=== PATIENT | male | born 1990 | race Caucasian/White ===

== ENCOUNTER → 2018-07-30 | Outpatient (CLI) | payer OTHER | LOC: RAD 16:26 | DX: M79.89 Other specified soft tissue disorders (principal) ==

== ENCOUNTER 2020-12-07 21:00 | Emergency (ER) | payer OTHER ==
[~2020-12-07] VITALS: Ht 200.7 cm; Wt 96.8 kg
[2020-12-07 22:34] VITALS: BP 118/73
== END 2020-12-07 22:35 | disposition home or self-care (01) ==
LOC: ED 21:00
DX: S06.0X0A Concussion without loss of consciousness, initial encounter (principal); S00.03XA Contusion of scalp, initial encounter; W20.8XXA Other cause of strike by thrown, projected or falling object, initial encounter

== ENCOUNTER 2022-12-11 20:06 | Emergency (ER) | payer OTHER ==
[~2022-12-11] VITALS: Ht 200.7 cm; Wt 104.5 kg
[2022-12-11 20:35] VITALS: BP 125/92
[2022-12-11 21:11] LABS: BASO # 0.05 K/mm3 (0.02-0.10); EOS # 0.18 K/mm3 (0.04-0.40); EOS % 2.3 % (0.0-4.0); HEMATOCRIT 45.4 % (42.0-52.0); HEMOGLOBIN 15.9 g/dL (13.5-18.0); LYMPH# 3.35 K/mm3 (1.50-4.00); MEAN CELL VOLUME 89 fl (78-100); MEAN CORPUSCULAR HEMOGLOBIN 31 pg (27-31); MEAN CORPUSCULAR HGB CONC 35 g/dL (33-37); MEAN PLATELET VOLUME 10.4 fl (7.4-10.4); MONO # 0.66 K/mm3 (0.20-0.80); NEU # 3.61 K/mm3 (1.40-6.50); PLATELET COUNT 203 K/mm3 (130-400); RED BLOOD COUNT 5.08 M/mm3 (4.20-5.60); RED CELL DISTRIBUTION WIDTH 12.4 % (11.5-14.5); WHITE BLOOD COUNT 7.9 K/mm3 (4.8-10.8)
[2022-12-11 21:17] LABS: ALBUMIN 5.1 g/dL (3.5-5.0)
[2022-12-11 21:19] LABS: CALCIUM 10.1 mg/dL (8.3-10.5)
[2022-12-11 21:20] LABS: TOTAL PROTEIN 8.2 g/dL (6.4-8.3)
[2022-12-11 21:22] LABS: TOTAL BILIRUBIN 0.8 mg/dL (0.2-1.2)
== END 2022-12-11 21:30 | disposition home or self-care (01) ==
LOC: ED 20:06
PROVIDERS: Family Medicine
DX: R10.9 Unspecified abdominal pain (principal); V49.9XXA Car occupant (driver) (passenger) injured in unspecified traffic accident, initial encounter; Y92.410 Unspecified street and highway as the place of occurrence of the external cause

== ENCOUNTER → 2023-09-18 | Outpatient (CLI) | payer OTHER ==
[2023-09-18 15:58] LABS: HEMATOCRIT 46.7 % (42.0-52.0); MEAN CELL VOLUME 89 fl (78-100); MEAN CORPUSCULAR HEMOGLOBIN 31 pg (27-31); MEAN CORPUSCULAR HGB CONC 34 g/dL (33-37); MEAN PLATELET VOLUME 9.6 fl (7.4-10.4); PLATELET COUNT 249 K/mm3 (130-400); RED BLOOD COUNT 5.24 M/mm3 (4.20-5.60); RED CELL DISTRIBUTION WIDTH 12.3 % (11.5-14.5); WHITE BLOOD COUNT 9.4 K/mm3 (4.8-10.8)
[2023-09-18 16:06] LABS: ALBUMIN 4.4 g/dL (3.5-5.0)
[2023-09-18 16:07] LABS: CALCIUM 9.6 mg/dL (8.3-10.5)
[2023-09-18 16:08] LABS: TOTAL PROTEIN 7.5 g/dL (6.4-8.3)
[2023-09-18 16:10] LABS: TOTAL BILIRUBIN 0.6 mg/dL (0.2-1.2)
[2023-09-18 16:47] LABS: BAND 1 % (0-10); LYMPHOCYTE 17 % (20-51); MONOCYTE 15 % (3-10); NEUTROPHILS 58 % (42-75)
== END ==
LOC: LAB 15:41
PROVIDERS: Family Medicine
DX: R06.00 Dyspnea, unspecified (principal)

== ENCOUNTER → 2023-10-02 | Outpatient (REF) | payer OTHER ==
[2023-10-02 14:55] LABS: BASO # 0.03 K/mm3 (0.02-0.10); EOS # 0.33 K/mm3 (0.04-0.40); EOS % 4.6 % (0.0-4.0); HEMATOCRIT 47.7 % (42.0-52.0); HEMOGLOBIN 16.3 g/dL (13.5-18.0); LYMPH# 2.68 K/mm3 (1.50-4.00); MEAN CELL VOLUME 90 fl (78-100); MEAN CORPUSCULAR HEMOGLOBIN 31 pg (27-31); MEAN CORPUSCULAR HGB CONC 34 g/dL (33-37); MEAN PLATELET VOLUME 10.6 fl (7.4-10.4); MONO # 0.69 K/mm3 (0.20-0.80); NEU # 3.36 K/mm3 (1.40-6.50); PLATELET COUNT 264 K/mm3 (130-400); RED CELL DISTRIBUTION WIDTH 12.7 % (11.5-14.5); WHITE BLOOD COUNT 7.1 K/mm3 (4.8-10.8)
[2023-10-02 15:00] LABS: ALBUMIN 4.7 g/dL (3.5-5.0); D-DIMER 0.14 mg/L FEU (0.15-0.50)
[2023-10-02 15:02] LABS: CALCIUM 10.2 mg/dL (8.3-10.5)
[2023-10-02 15:03] LABS: TOTAL PROTEIN 8.3 g/dL (6.4-8.3)
[2023-10-02 15:05] LABS: TOTAL BILIRUBIN 0.7 mg/dL (0.2-1.2)
== END ==
LOC: LAB 14:33
PROVIDERS: Nurse Practitioner Family
DX: J18.9 Pneumonia, unspecified organism (principal); R59.0 Localized enlarged lymph nodes; R53.83 Other fatigue

== ENCOUNTER → 2023-12-29 | Outpatient (CLI) | payer OTHER ==
[2023-12-29 19:05] LABS: BASO # 0.06 K/mm3 (0.02-0.10); EOS # 0.35 K/mm3 (0.04-0.40); EOS % 2.6 % (0.0-4.0); HEMATOCRIT 45.3 % (42.0-52.0); HEMOGLOBIN 15.8 g/dL (13.5-18.0); LYMPH# 2.41 K/mm3 (1.50-4.00); MEAN CELL VOLUME 89 fl (78-100); MEAN CORPUSCULAR HEMOGLOBIN 31 pg (27-31); MEAN CORPUSCULAR HGB CONC 35 g/dL (33-37); MEAN PLATELET VOLUME 10.8 fl (7.4-10.4); MONO # 1.34 K/mm3 (0.20-0.80); NEU # 9.24 K/mm3 (1.40-6.50); PLATELET COUNT 216 K/mm3 (130-400); RED BLOOD COUNT 5.09 M/mm3 (4.20-5.60); RED CELL DISTRIBUTION WIDTH 13.1 % (11.5-14.5); WHITE BLOOD COUNT 13.4 K/mm3 (4.8-10.8)
== END ==
LOC: LAB 18:51
PROVIDERS: Nurse Practitioner Family
DX: R06.00 Dyspnea, unspecified (principal); R53.83 Other fatigue; Z20.828 Contact with and (suspected) exposure to other viral communicable diseases